=== PATIENT | male | born 1930 | race Caucasian/White ===

== ENCOUNTER 2018-10-28 20:22 | Inpatient (IN) | payer MEDICARE, OTHER ==
[2018-10-28] MEDS: SOD CHLORIDE 0.9% 500 ML IV (23:22)
[2018-10-28 23:31] LABS: ADD MAN DIFF? NO
[2018-10-28 23:33] LABS: WHITE BLOOD COUNT 9.3 10^3/ul (4.8-10.8)
[2018-10-28 23:33] LABS: BASOPHILS % 0.3 % (0.0-2.0); EOSINOPHILS # 0.1 10^3/ul (0.0-0.5); EOSINOPHILS % 0.8 % (0.0-7.0); HEMATOCRIT 32.2 % (42.0-52.0); HEMOGLOBIN 10.2 g/dl (14.0-18.0); LYMPHOCYTES % 21.5 % (15.0-51.0); MEAN CORPUSCULAR HEMOGLOBIN 30.5 pg (29.0-33.0); MEAN CORPUSCULAR HGB CONC 31.7 g/dl (32.0-37.0); MEAN CORPUSCULAR VOLUME 96.4 fl (82.0-101.0); MEAN PLATELET VOLUME 10.3 fl (7.4-10.4); MONOCYTE # 0.8 10^3/ul (0.3-0.9); MONOCYTES % 9.1 % (0.0-11.0); NEUTROPHIL # 6.3 10^3/ul (1.6-7.5); NEUTROPHILS % 68.1 % (39.0-77.0); PLATELET COUNT 152 10^3/UL (140-415); RED BLOOD COUNT 3.34 10^6/ul (4.70-6.10); RED CELL DISTRIBUTION WIDTH 13.9 % (11.5-14.5)
[2018-10-28 23:50] LABS: ADD UMIC YES; UR ASCORBIC ACID NEGATIVE (NEGATIVE); UR BACTERIA MANY /HPF (NONE SEEN); UR BILIRUBIN (Dip) NEGATIVE (NEGATIVE); UR BLOOD (Dip) NEGATIVE (NEGATIVE); UR CLARITY CLOUDY (CLEAR); UR COLOR YELLOW (YELLOW); UR GLUCOSE (Dip) NEGATIVE (NEGATIVE); UR KETONES (Dip) NEGATIVE (NEGATIVE); UR LEUKOCYTE ESTERASE (Dip) 3+ Leu/ul (NEGATIVE); UR MUCUS MANY /HPF (NONE SEEN); UR NITRITE (Dip) POSITIVE (NEGATIVE); UR RBC 4 /HPF (0-5); UR SPECIFIC GRAVITY (Dip) 1.017 (1.003-1.030); UR TOTAL PROTEIN (Dip) NEGATIVE (NEGATIVE); UR UROBILINOGEN (Dip) NEGATIVE (NEGATIVE); UR WBC > 182 /HPF (0-5)
[2018-10-28] MEDS: morphine 2 MG INJ IV (23:58)
[2018-10-28] MEDS: ONDANSETRON 4 MG INJ IV (23:58)
[2018-10-29 00:03] LABS: ALANINE AMINOTRANSFERASE 41 IU/L (13-69); ALBUMIN 3.8 g/dl (3.3-4.9); ALBUMIN/GLOBULIN RATIO 1.18; ALKALINE PHOSPHATASE 65 IU/L (42-121); ANION GAP 15 (5-13); ASPARTATE AMINO TRANSFERASE 39 IU/L (15-46); BILIRUBIN,INDIRECT 0.1 mg/dl (0-1.1); BILIRUBIN,TOTAL 0.1 mg/dl (0.2-1.3); BLOOD UREA NITROGEN 26 mg/dl (7-20); CALCIUM 10.6 mg/dl (8.4-10.2); CARBON DIOXIDE 27 mmol/L (21-31); CHLORIDE 101 mmol/L (97-110); CREATININE 1.05 mg/dl (0.61-1.24); GLUCOSE 103 mg/dl (70-220); LIPASE 88 U/L (23-300); POTASSIUM 4.4 mmol/L (3.5-5.1); SODIUM 143 mmol/L (135-144)
[2018-10-29 00:11] LABS: TROPONIN-I < 0.012 ng/ml (0.000-0.120)
[2018-10-29] MEDS: CEFTRIAXONE 1 GM/50 ML (PMX) 50 ML IVPB (00:28)
[2018-10-29] MEDS ORDERED: ENALAPRILAT 1.25 MG INJ IV (02:30)
[2018-10-29 02:42] LABS: LACTIC ACID < 0.5 mmol/L (0.5-2.0)
[2018-10-29 06:00] LABS: ADD MAN DIFF? NO
[2018-10-29 06:12] LABS: WHITE BLOOD COUNT 7.6 10^3/ul (4.8-10.8)
[2018-10-29 06:12] LABS: BASOPHILS % 0.4 % (0.0-2.0); EOSINOPHILS # 0.1 10^3/ul (0.0-0.5); EOSINOPHILS % 1.7 % (0.0-7.0); HEMATOCRIT 32.8 % (42.0-52.0); HEMOGLOBIN 10.6 g/dl (14.0-18.0); LYMPHOCYTES # 1.8 10^3/ul (0.8-2.9); LYMPHOCYTES % 24.2 % (15.0-51.0); MEAN CORPUSCULAR HGB CONC 32.3 g/dl (32.0-37.0); MEAN CORPUSCULAR VOLUME 95.9 fl (82.0-101.0); MEAN PLATELET VOLUME 10.5 fl (7.4-10.4); MONOCYTE # 0.7 10^3/ul (0.3-0.9); MONOCYTES % 9.6 % (0.0-11.0); NEUTROPHIL # 4.9 10^3/ul (1.6-7.5); NEUTROPHILS % 63.8 % (39.0-77.0); PLATELET COUNT 128 10^3/UL (140-415); RED BLOOD COUNT 3.42 10^6/ul (4.70-6.10); RED CELL DISTRIBUTION WIDTH 13.9 % (11.5-14.5)
[2018-10-29 06:28] LABS: LACTIC ACID 1.1 mmol/L (0.5-2.0)
[2018-10-29 06:40] LABS: ALANINE AMINOTRANSFERASE 38 IU/L (13-69); ALBUMIN 3.4 g/dl (3.3-4.9); ALBUMIN/GLOBULIN RATIO 1.09; ALKALINE PHOSPHATASE 61 IU/L (42-121); ANION GAP 13 (5-13); ASPARTATE AMINO TRANSFERASE 29 IU/L (15-46); BLOOD UREA NITROGEN 22 mg/dl (7-20); CALCIUM 10.1 mg/dl (8.4-10.2); CARBON DIOXIDE 27 mmol/L (21-31); CHLORIDE 103 mmol/L (97-110); CREATININE 0.96 mg/dl (0.61-1.24); GLUCOSE 86 mg/dl (70-220); POTASSIUM 4.2 mmol/L (3.5-5.1); SODIUM 143 mmol/L (135-144); TOTAL PROTEIN 6.5 g/dl (6.1-8.1)
[2018-10-29 06:49] LABS: T4 (THYROXINE) 9.8 ug/dl (5.5-11.0)
[2018-10-29] MEDS: LEVOTHYROXINE 88 MCG TAB PO (07:00)
[2018-10-29 07:03] LABS: THYROID STIMULATING HORMONE 0.226 MIU/L (0.465-4.680)
[2018-10-29] MEDS ORDERED: NON-FORMULARY/PATIENT OWN MED (Memantine* (Namenda* XR) 28 MG) PO (09:00)
[2018-10-29] MEDS: MEMANTINE 10 MG TAB PO ×2 (09:00→21:00)
[2018-10-29] MEDS: FINASTERIDE 5 MG TAB PO (09:00)
[2018-10-29 09:31] LABS: AMYLASE 71 U/L (11-123)
[2018-10-29] MEDS: RIVASTIGMINE 13.3MG/24HR PATCH TD (10:52)
[2018-10-29] MEDS: DORZOLAMIDE/TIMOLOL 10 ML OPH BOTH EYES ×2 (10:53→21:02)
[2018-10-29] MEDS: LACTULOSE 30ML CUP PO (18:35)
[2018-10-29] MEDS: MAGNESIUM HYDROXIDE 30ML CUP PO (18:35)
[2018-10-29] MEDS: MINERAL OIL 30ML CUP PO (18:35)
[2018-10-29] MEDS ORDERED: TRAVOPROST 0.004% 2.5 ML OPH BOTH EYES (21:00)
[2018-10-29] MEDS: ATORVASTATIN 40 MG TAB PO (21:00)
[2018-10-29] MEDS: TERAZOSIN 2 MG CAP PO (21:01)
[2018-10-29] MEDS: LATANOPROST 0.005% 2.5 ML OPH BOTH EYES (21:02)
[2018-10-30] MEDS: LEVOTHYROXINE 75 MCG TAB PO (06:44)
[2018-10-30] MEDS: RIVASTIGMINE 13.3MG/24HR PATCH TD (08:12)
[2018-10-30] MEDS: DORZOLAMIDE/TIMOLOL 10 ML OPH BOTH EYES (08:12)
[2018-10-30] MEDS: MEMANTINE 10 MG TAB PO (08:12)
[2018-10-30] MEDS: FINASTERIDE 5 MG TAB PO (08:12)
== END 2018-10-30 13:00 | disposition home or self-care (01) | DRG 389 ==
LOC: E/R 20:22 → 6WM 10-29 01:31
DX: K56.609 Unspecified intestinal obstruction, unspecified as to partial versus complete obstruction (principal); C83.36 Diffuse large B-cell lymphoma, intrapelvic lymph nodes; R00.1 Bradycardia, unspecified; M81.0 Age-related osteoporosis without current pathological fracture; E03.8 Other specified hypothyroidism; N40.0 Benign prostatic hyperplasia without lower urinary tract symptoms; F09 Unspecified mental disorder due to known physiological condition; E78.5 Hyperlipidemia, unspecified; H91.93 Unspecified hearing loss, bilateral
CPT/HCPCS: 36415; 71045; 74176; 74250; 80053; 81001; 82150; 83605; 83690; 84436; 84443; 84484; 85025; 87040; 87086; 87400; 96374; 96375; 99285-25

== ENCOUNTER 2018-11-10 21:42 | Emergency (ER) | payer MEDICARE, OTHER ==
[2018-11-11] MEDS: SOD CHLORIDE 0.9% 500 ML IV (00:12)
[2018-11-11] MEDS: morphine 4 MG/ML VIAL IV (00:12)
[2018-11-11] MEDS: ONDANSETRON 4 MG INJ IV (00:12)
[2018-11-11 00:32] LABS: ADD MAN DIFF? NO
[2018-11-11 00:40] LABS: BASOPHILS % 0.4 % (0.0-2.0); EOSINOPHILS # 0.2 10^3/ul (0.0-0.5); EOSINOPHILS % 3.1 % (0.0-7.0); HEMATOCRIT 34.4 % (42.0-52.0); HEMOGLOBIN 10.8 g/dl (14.0-18.0); LYMPHOCYTES # 2.3 10^3/ul (0.8-2.9); LYMPHOCYTES % 29.7 % (15.0-51.0); MEAN CORPUSCULAR HEMOGLOBIN 30.9 pg (29.0-33.0); MEAN CORPUSCULAR HGB CONC 31.4 g/dl (32.0-37.0); MEAN CORPUSCULAR VOLUME 98.3 fl (82.0-101.0); MEAN PLATELET VOLUME 10.7 fl (7.4-10.4); MONOCYTE # 0.7 10^3/ul (0.3-0.9); MONOCYTES % 8.3 % (0.0-11.0); NEUTROPHIL # 4.5 10^3/ul (1.6-7.5); NEUTROPHILS % 58.2 % (39.0-77.0); PLATELET COUNT 130 10^3/UL (140-415); POSITIVE DIFF @See below
[2018-11-11 00:40] LABS: WHITE BLOOD COUNT 7.8 10^3/ul (4.8-10.8)
[2018-11-11 00:42] LABS: ADD UMIC NO; UR ASCORBIC ACID 40 mg/dL (NEGATIVE); UR BILIRUBIN (Dip) NEGATIVE (NEGATIVE); UR BLOOD (Dip) NEGATIVE (NEGATIVE); UR CLARITY CLEAR (CLEAR); UR COLOR YELLOW (YELLOW); UR GLUCOSE (Dip) NEGATIVE (NEGATIVE); UR KETONES (Dip) NEGATIVE (NEGATIVE); UR LEUKOCYTE ESTERASE (Dip) NEGATIVE Leu/ul (NEGATIVE); UR NITRITE (Dip) NEGATIVE (NEGATIVE); UR SPECIFIC GRAVITY (Dip) 1.017 (1.003-1.030); UR TOTAL PROTEIN (Dip) NEGATIVE (NEGATIVE); UR UROBILINOGEN (Dip) NEGATIVE (NEGATIVE)
[2018-11-11 00:55] LABS: ALANINE AMINOTRANSFERASE 67 IU/L (13-69); ALBUMIN 3.7 g/dl (3.3-4.9); ALBUMIN/GLOBULIN RATIO 1.15; ALKALINE PHOSPHATASE 58 IU/L (42-121); ANION GAP 3 (5-13); ASPARTATE AMINO TRANSFERASE 59 IU/L (15-46); BILIRUBIN,INDIRECT 0.1 mg/dl (0-1.1); BILIRUBIN,TOTAL 0.1 mg/dl (0.2-1.3); BLOOD UREA NITROGEN 25 mg/dl (7-20); CALCIUM 10.3 mg/dl (8.4-10.2); CARBON DIOXIDE 31 mmol/L (21-31); CHLORIDE 105 mmol/L (97-110); CREATININE 1.26 mg/dl (0.61-1.24); GLUCOSE 99 mg/dl (70-220); LIPASE 158 U/L (23-300); POTASSIUM 4.6 mmol/L (3.5-5.1); SODIUM 139 mmol/L (135-144); TOTAL PROTEIN 6.9 g/dl (6.1-8.1)
== END 2018-11-11 01:23 | disposition home or self-care (01) ==
LOC: E/R 11-11 01:23
DX: R10.31 Right lower quadrant pain (principal); I25.10 Atherosclerotic heart disease of native coronary artery without angina pectoris; I10 Essential (primary) hypertension; Z85.028 Personal history of other malignant neoplasm of stomach
CPT/HCPCS: 36415; 74176; 80053; 81003; 83690; 85025; 96374; 96375; 99285-25